=== PATIENT | female | born 1990 | race Two or more races ===

== ENCOUNTER 2016-11-04 18:43 | Emergency (ER) | payer OTHER ==
[2016-11-04 22:13] VITALS: BP 118/72
== END 2016-11-04 22:13 | disposition home or self-care (01) ==
LOC: ED 18:43
DX: R10.2 Pelvic and perineal pain (principal); Z87.440 Personal history of urinary (tract) infections

== ENCOUNTER 2016-12-16 16:09 | Emergency (ER) | payer OTHER ==
[~2016-12-16] VITALS: Ht 154.9 cm; Wt 62.6 kg
[2016-12-16 18:33] VITALS: BP 135/64
== END 2016-12-16 19:05 | disposition home or self-care (01) ==
LOC: ED 16:09
DX: S46.911A Strain of unspecified muscle, fascia and tendon at shoulder and upper arm level, right arm, initial encounter (principal); R07.81 Pleurodynia; R03.0 Elevated blood-pressure reading, without diagnosis of hypertension; X58.XXXA Exposure to other specified factors, initial encounter; Y93.89 Activity, other specified; Y99.8 Other external cause status; Y92.89 Other specified places as the place of occurrence of the external cause
CPT/HCPCS: J1885

== ENCOUNTER 2017-02-12 09:30 | Emergency (ER) | payer OTHER ==
[2017-02-12 11:34] VITALS: BP 113/55
== END 2017-02-12 11:34 | disposition home or self-care (01) ==
LOC: ED 09:30
DX: H60.502 Unspecified acute noninfective otitis externa, left ear (principal); T16.2XXA Foreign body in left ear, initial encounter; X58.XXXA Exposure to other specified factors, initial encounter; Y93.89 Activity, other specified; Y99.8 Other external cause status; Y92.89 Other specified places as the place of occurrence of the external cause

== ENCOUNTER 2017-03-12 10:40 | Emergency (ER) | payer OTHER ==
[~2017-03-12] VITALS: Ht 154.9 cm; Wt 65.1 kg
[2017-03-12 11:39] VITALS: BP 145/68
== END 2017-03-12 11:38 | disposition home or self-care (01) ==
LOC: ED 10:40
DX: T16.2XXA Foreign body in left ear, initial encounter (principal); R03.0 Elevated blood-pressure reading, without diagnosis of hypertension; X58.XXXA Exposure to other specified factors, initial encounter; Y93.89 Activity, other specified; Y99.8 Other external cause status; Y92.89 Other specified places as the place of occurrence of the external cause

== ENCOUNTER 2018-10-29 05:31 | Emergency (ER) | payer OTHER ==
[~2018-10-29] VITALS: Ht 152.4 cm; Wt 60.0 kg
[2018-10-29 06:04] VITALS: Ht 152.4 cm; Wt 60.0 kg
[2018-10-29 08:21] LABS: UA SPECIFIC GRAVITY 1.015 (1.005-1.035); microscopic required? YES; urine erythrocyte 1+ (NEGATIVE)
[2018-10-29 09:44] VITALS: BP 110/64
== END 2018-10-29 09:44 | disposition home or self-care (01) ==
LOC: ED 05:31
PROVIDERS: Emergency Medicine
DX: J03.80 Acute tonsillitis due to other specified organisms (principal); N39.0 Urinary tract infection, site not specified
CPT/HCPCS: J0696; Q0092